=== PATIENT | female | born 1995 | race Caucasian/White ===

== ENCOUNTER 2017-03-28 17:37 | Observation (INO) ==
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
[2017-03-28] MEDS ORDERED: *HR* OxyCODONE/APAP 5/325 TABLET PO ONE (18:17)
[2017-03-28] MEDS: Bupivacaine-MPF 0.25% 10 ML VIAL INFILT ONE ×2 (19:30→19:39)
[2017-03-28] MEDS ORDERED: Lidocaine 1% 20 ML MDV INFILT ONE (19:45)
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
[2017-03-28] MEDS ORDERED: Naloxone 0.4 MG/ML INJ IVP PRN (21:12)
[2017-03-28] MEDS ORDERED: *HR* HYDROmorphone (PF) 1 MG/ML SYRINGE IVP PRN (21:12)
[2017-03-28] MEDS ORDERED: Ondansetron 4 MG/2 ML VIAL IVP PRN (21:12)
[2017-03-28] MEDS: Ringers Solution, Lactated 1,000 ML IVC SCH (23:40)
[2017-03-28] MEDS: *HR* OxyCODONE/APAP 5/325 TABLET PO PRN (23:40)
[2017-03-29] MEDS: *HR* OxyCODONE/APAP 5/325 TABLET PO PRN ×3 (04:02→19:58)
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
[2017-03-29 08:26] LABS: Basophils % 0.2 %; Eosinophils % 0.4 %; Hematocrit 36.8 % (35.3-44.9); Hemoglobin 12.2 g/dL (11.5-15.4); Immature Granulocytes % 0.2 % (0-4); Immature Platelets 4.6 % (1.1-6.1); Lymphocytes # 1.8 K/mcL (0.6-4.6); Mean Corpuscular HGB Conc 33.2 g/dL (31.6-35.5); Mean Corpuscular Hemoglobin 28.8 pg (28.0-33.3); Monocytes % 10.8 %; Neutrophils # 6.6 K/mcL (1.6-8.9); Platelet Count 208 K/mcL (140-400); Red Blood Count 4.23 M/mcL (3.82-4.97); Red Cell Distribution Width 12.6 % (11.5-14.5); Segmented Neutrophils % 69.4 %
[2017-03-29 08:38] LABS: BUN/Creatinine Ratio 12 (6-26); Blood Urea Nitrogen 8 mg/dL (7-20); Carbon Dioxide 23 mEq/L (19-29); Chloride 110 mEq/L (98-109); Glucose 95 mg/dL (70-99); Osmolality,Calculated 284 (280-300); Potassium 3.9 mEq/L (3.5-4.5); Sodium 138 mEq/L (136-145); eGFR For African Americans > 60 (> 60); eGFR For Non-African Americans > 60 (> 60)
--- NOTE | 2017-03-29 09:46 | Anesthesia Evaluation PreOp ---
Date of Encounter: 03/29/17 Time of Encounter: 09:44 - Past History Planned Operation: ORIF Right Forearm Cardiac History: Denies any Significant Hx Pulmonary History: Denies Any Significant HX TITLE I DIRECTOR History: Denies Any Significant HX Other Medical History: Denies Any Significant HX Anesthesia History: No Prior Anesthetic Complications, Past Anesthesia (None) Alcohol Use: none Drug use: none Medications and Allergies Nitrofurantoin [Macrodantin] 50 mg PO DAILY 03/28/17 [History] Norgestimate-Ethinyl Estradiol [Sprintec 28 Day Tablet] 1 tab PO DAILY 03/28/17 [History] 3 Allergy/AdvReac Type Severity Reaction Status Date / Time No Known Allergies Allergy Verified 04/06/16 12:39 Anesthesia Results - Labs 03/29/17 08:07 03/29/17 08:07 Anesthesia Exam O2 Sat Height 1.6 m Height 1.6 m Height 1.6 m Weight 67.3 kg Weight 68.039 kg Weight 68.039 kg O2 Sat by Pulse Oximetry 97 O2 Sat by Pulse Oximetry 99 O2 Sat by Pulse Oximetry 97 O2 Sat by Pulse Oximetry 97 O2 Sat by Pulse Oximetry 97 O2 Sat by Pulse Oximetry 99 O2 Sat by Pulse Oximetry 97 O2 Sat by Pulse Oximetry 98 O2 Sat by Pulse Oximetry 100 Vital Signs Temp Pulse Resp BP Pulse Ox 98.6 F 82 16 131/90 100 03/28/17 17:40 03/28/17 17:40 03/28/17 17:40 03/28/17 17:40 03/28/17 17:40 Vital Signs/O2 Sat, Most Current Temp Pulse Resp BP Pulse Ox 98.8 F 68 16 118/79 97 03/29/17 06:25 03/29/17 06:25 03/29/17 06:25 03/29/17 06:25 03/29/17 06:25 Height: 5'3'' Weight: 148# NPO (# of Hours): > 8 hrs Pain Scale: 0 Pain Scale Used: Numeric (1 - 10)
[2017-03-29] MEDS: Ringers Solution, Lactated 1,000 ML IVC SCH (10:38)
[2017-03-29] MEDS ORDERED: *HR* FentaNYL (PF) 100 MCG/2 ML VIAL ONE (11:28)
[2017-03-29] MEDS ORDERED: *HR* Midazolam HCl 2 MG/2 ML VIAL ONE (11:29)
[2017-03-29] MEDS ORDERED: *HR* Propofol 200 MG/20 ML VIAL IVP ONE (11:29)
[2017-03-29] MEDS ORDERED: *HR* HYDROmorphone 2 MG/ML SYRINGE ONE (11:36)
[2017-03-29] MEDS ORDERED: Bupivacaine/EPI 1:200k 0.5%PF 10 ML VIAL ONE ×2 (11:47→14:20)
[2017-03-29] MEDS ORDERED: ceFAZolin 2,000 MG in D5% in Water (Mini-Bag+) 100 ML IVPB ONE (11:48)
[2017-03-29] MEDS ORDERED: *HR* Rocuronium Bromide 50 MG/5 ML VIAL ONE (12:34)
[2017-03-29] MEDS ORDERED: *HR* Succinylcholine 200 MG/10 ML VIAL IVP ONE (12:34)
[2017-03-29] MEDS ORDERED: Ondansetron 4 MG/2 ML VIAL ONE (12:34)
[2017-03-29] MEDS ORDERED: Lidocaine -MPF 2% 2 ML VIAL ONE (12:34)
[2017-03-29] MEDS ORDERED: Dexamethasone 4 MG/ML VIAL ONE (12:34)
[2017-03-29] MEDS ORDERED: *HR* Promethazine 25 MG/ML VIAL IVP PRN (12:58)
[2017-03-29] MEDS ORDERED: *HR* HYDROmorphone (PF) 1 MG/ML SYRINGE IVP PRN (12:58)
[2017-03-29] MEDS ORDERED: Neostigmine Methylsulfate 3 MG/3 ML SYRINGE ONE (13:18)
--- NOTE | 2017-03-29 15:31 | Anesthesia Evaluation Post Op ---
Date of Encounter: 03/29/17 Time of Encounter: 15:30 - Vital Signs Vital Signs: Vital Signs/O2 Sat, Most Current Temp Pulse Resp BP Pulse Ox 97.8 F 61 15 117/69 94 03/29/17 14:58 03/29/17 15:18 03/29/17 15:18 03/29/17 15:18 03/29/17 15:18 - Lungs Lungs: Clear Ascult./Percussion - Airway Airway: Non-obstructed - Cardiovascular Regular Rate - Mental Status Mental Status: Alert & Oriented, Answers Appropriately - Pain Pain Scale: 0 Pain Scale used: Numeric (1 - 10) - Nausea Vomiting Nausea Vomiting: Not Present - Hydration Hydration: Ice chips, Has not voided - Discharge PostOp Status: Transfer Patient to floor
--- NOTE | 2017-03-29 16:31 | Discharge Summary ---
Outpatient Proc Discharge Plan - Plan Additional Instructions: DISCHARGE INSTRUCTIONS Dr. Crocker DISCHARGE DIAGNOSIS/PROCEDURE Open reduction and internal fixation of the right both bone forearm fracture Cast placement on the left upper extremity for metacarpal shaft fractures PAIN AND SWELLING: The goal of pain medication is to reduce your pain and make you more comfortable. Pain medication may not completely relieve all discomfort. Control of swelling is an important part of pain control. To control swelling and pain: 1. Use a pillow to elevate the hand 10 to 14 inches above the heart level. 2. If your splint is positioned so that one or more of your fingers is free, then we encourage gentle movement of those fingers. If the splint blocks your motion, then we ask that you avoid motion of these fingers or hand. If the splint does not include the elbow, then we encourage you to bend and straighten your elbow 4 to 5 times per day to prevent stiffness. 3. Use ice packs over the affected area (on the soft side of the dressings is preferred - if there is one) for 10 minute intervals every hour while the hand is elevated. Be careful, however, to keep the dressing dry! 4. If you were given a sling, then wear the sling on when walking around for long periods of time. Otherwise, elevated as directed above. Continued use of the sling does not provide proper elevation of the extremity to prevent swelling. 5. The anesthesiologist may have given you a nerve block (an injection near your neck or shoulder) to numb your hand and arm. This is to help control your pain. Therefore, it is normal to experience some numbness and tingling in your arm and fingers up to approximately 18 hours after surgery. Your surgeon may have given a nerve block directly at the site of surgery which may also cause some numbness and tingling to the affected area. ACTIVITY: Avoid aggressive activities with either extremity WOUND CARE: Keep the wound clean, dry, and covered. The purpose of the dressing is to keep the surgical site protected and to promote healing. If you have a splint or a cast, it is designed to also help protect the surgical site. You may take a shower or bath with your dressing, splint, or cast in place, but you must keep it dry. One common way to do this is to place a bag over the area and seal with tape. If your dressing, splint, or cast becomes soaked, then phone our office as soon as possible. Unless otherwise instructed, do not remove your dressing or splint. There may be some bloody spotting on the dressing initially , and this is normal. Excessive bleeding that soaks the dressing must be reported to us. DRIVING: Do not drive while taking narcotic pain medications. DIET: Begin with clear liquids, and then increase your diet as you feel comfortable. MEDICATIONS: Pain: Percocet Your prescribed pain medication contains Tylenol. You must be careful not to exceed 4,000 mg (4 g) of Tylenol (or generic equivalent), from all sources, within a single 24-hour period. Gradually wean to Tylenol (or generic equivalent) for pain. Over the counter ibuprofen can be taken as directed in addition to your prescribed pain medication unless otherwise stated by your doctor. DO NOT TAKE IBUPROFEN IF YOU HAVE A HISTORY OF STOMACH ULCERS OR ARE TAKING BLOOD THINNERS LIKE COUMADIN OR PLAVIX. FOLLOW-UP Follow-up with Dr. Crocker at the office 1 week from the surgery date for a post operative evaluation. Call the office at [phone] to schedule or confirm your appointment. WHEN TO CALL THE DOCTOR OR WHEN TO SEEK CARE BEFORE YOUR APPOINTMENT 1. Excess swelling or increased numbness not made better by elevating the hand and moving the fingers. 2. Uncontrolled pain. 3. A color change in your hand or fingers. 4. Worsening redness or drainage. 5. Fevers over 100.5 degrees F or 38.1 degrees C. 6. Any symptoms that bring concern to you. Prescriptions: OxyCODONE/APAP 5/325 [Percocet 5/325 MG] 1 each PO Q6H PRN #40 tablet PRN Reason: Pain Home Medications: Nitrofurantoin [Macrodantin] 50 mg PO DAILY 03/28/17 [History] Norgestimate-Ethinyl Estradiol [Sprintec 28 Day Tablet] 1 tab PO DAILY 03/28/17 [History] OxyCODONE/APAP 5/325 [Percocet 5/325 MG] 1 each PO Q6H PRN #40 tablet 03/29/17 [ Rx]
[2017-03-29] MEDS: ceFAZolin 2,000 MG in D5% in Water 100 ML IVPB SCH ×2 (17:28→23:17)
--- NOTE | 2017-03-29 18:21 | Orthopedic Operative Note ---
Date of procedure: 03/29/17 Procedure: OPERATIVE REPORT DATE OF PROCEDURE: 03/29/2017 SURGEON: Luke Crocker MD COMPOUND SPECIALIST(S): There are no assistants PREOPERATIVE DIAGNOSIS: Right both bone forearm fracture POSTOPERATIVE DIAGNOSIS: Right both bone forearm fracture PROCEDURE: Open reduction and internal fixation of the right radius and ulna shafts ANESTHESIA: General anesthesia PREOPERATIVE ANTIBIOTICS: 2 g of Ancef ESTIMATED BLOOD LOSS: 10 milliliters TOURNIQUET TIME: 74 minutes at 250 mmHg IMPLANTS: Synthes 3.5 mm LC-DCP plate and Synthes 2.7 mm LC-DCP plate LOCAL INJECTION: 0.5% bupivacaine with 1:200,000 epinephrine; 20 mL used in total PREOPERATIVE NOTE AND INDICATIONS: This patient is a 21-year-old female who sustained a right both bone forearm fracture and was admitted for surgical fixation. The goal is for realigning and stabilizing the forearm in order to improve biomechanics and facilitate bony healing. The surgical plan was discussed with the patient. The risks, benefits, alternatives, and potential complications of this procedure were discussed with the patient including injury to veins, arteries, nerves, tendons, ligaments, and bone. Also discussed were the risks of infection, bleeding, pain, blood clots, the possible need for a blood transfusion, the possible need for further procedures, heart attack, stroke, and . Additional risks include malunion , nonunion, hardware irritation and the need for hardware removal. All of this was explained in simple terms, and the patient verbalized understanding and wished to proceed. Consent was given to proceed with surgery. PROCEDURE: The patient was seen in the preoperative holding area where the identify and the consent were confirmed. The right forearm was marked. Final questions were answered. The patient was brought back to the operating room and placed supine on the operating room table. A huddle was performed with the patient and all vital surgical team members confirming patient identity, the correct procedure, and the correct operative site. And general anesthesia was administered. The right upper extremity was prepped and draped in the usual sterile fashion. A surgical time out was performed immediately preceding the incision with all personnel in the operating room to confirm patient identity, the correct operative site and extremity, correct radiographic studies, availability of appropriate surgical equipment, and agreement on the planned procedure. The limb was exsanguinated and the tourniquet was inflated. The approach started with the volar approach of [place] and an incision was made and centered over the fracture. Dissection proceeded through the subcutaneous tissue and the brachioradialis and flexor carpi radialis was identified. The interval was opened and the flexor digitorum superficialis and pronator teres were taken down from the radius while protecting the radial artery which was reflected ulnarly after taking down multiple perforators. The fracture was identified and was a non-comminuted transverse fracture which was easily reduced. The definitive under contoured plate was placed on the bone and fixed distally with 3.5 mm screws and proximally with 3.5 mm screws, with 2 screws in compression mode. The tourniquet was deflated and copious irrigation was used after discrete bleeders were electrocauterized. The wound was closed with interrupted nylon stitches. Attention was then directed to the ulna and a longitudinal incision made centered over the fracture and dissection proceeded through the subcutaneous tissue taking care to protect the dorsal ulnar cutaneous branch. The fracture was identified and noted to be an oblique fracture and the decision was made to lag through the plate. The definitive plate was clamped to the bone and secured proximally and distally with a cortical screw each followed by the placement of the 2.7 mm lag screw across the fracture. The remaining holes in the plate were filled though distally to the cortical screws did not have good purchase and were replaced with lockers. The tourniquet is deflated and discrete bleeders were electrocauterized. The wound was copiously irrigated and the incision was closed with interrupted nylon stitches. X-rays confirmed good alignment of the forearm and she had full pronation and supination without impingement after fixation. A sterile dressing was applied as well as a sugar tong splint. The instrument, sponge, and needle counts were correct after wound closure. POST OPERATIVE PLAN: Weight Bearing: Nonweightbearing to the right upper extremity DVT Prophylaxis: Ambulation Activity: Avoid aggressive activities with right upper extremity. Wound Care: Keep the dressing clean, dry, and intact. Pain Control: Percocet Perioperative antibiotic prophylaxis: 2 doses of Ancef Follow Up: One week
[2017-03-30] MEDS: *HR* OxyCODONE/APAP 5/325 TABLET PO PRN ×3 (00:04→08:28)
[2017-03-30 07:36] VITALS: BP 106/72
== END 2017-03-30 08:30 | disposition home or self-care (01) ==
LOC: EMEROO 17:37 → 3NENU 17:37
PROVIDERS: ADMIT Orthopaedic Surgery Hand Surgery; ATTEND Orthopaedic Surgery Hand Surgery